=== PATIENT | female | born 1980 | race Hispanic/Latino ===

== ENCOUNTER 2019-02-27 15:17 | Observation (INO) | payer OTHER ==
[2019-02-27 15:53] LABS: Hemoglobin 6.3 g/dL (12.0-16.0); Mean Corpuscular HGB CONC 28.5 g/dL (32.0-36.0); Mean Corpuscular Hemoglobin 17.6 pg (27.0-31.0); Mean Corpuscular Volume 61.7 fL (78.0-98.0); Mean Platelet Volume 6.8 fL (7.4-10.4); Platelet Count 249 thou/uL (130-400); RBC Distribution Width 18.7 % (11.5-14.5); Red Blood Cell (RBC) Count 3.59 mill/uL (4.20-5.40); White Blood Cell (WBC) Count 3.6 thou/uL (4.8-10.8)
[2019-02-27 16:14] LABS: ALT (SGPT) 11 U/L (8-55); AST (SGOT) 13 U/L (5-34); Albumin 4.2 g/dL (3.5-5.0); Alkaline Phosphatase 52 U/L (40-150); Anion Gap 12 mmol/L (10-20); BUN (Urea Nitrogen) 9 mg/dL (7.0-18.7); Bilirubin, Total 0.4 mg/dL (0.2-1.2); Calc. Creatinine Clearance 0 mL/min (70-130); Calcium 9.2 mg/dL (7.8-10.44); Carbon Dioxide 26 mmol/L (22-29); Chloride 103 mmol/L (98-107); Estimated GFR-MDRD Greater than 90; Globulin 3.2 g/dL (2.4-3.5); Glucose 90 mg/dL (70-105); Potassium 3.5 mmol/L (3.5-5.1); Protein, Total 7.4 g/dL (6.0-8.3); Sodium 137 mmol/L (136-145)
[2019-02-27 16:20] LABS: Anisocytosis SLIGHT = 6-15 cells (100X) (0-5/hpf); Band 5 % (5-11); Eosinophils 1 % (0-10); Hypochromia MODERATE=16-30 cells (100X) (0-5/hpf); Large Platelets SLIGHT; Lymphocytes 46 % (21-51); MDiff Complete? YES; Microcytosis MODERATE=15-30 cells (100X) (0-5/hpf); Monocytes 5 % (0-10); Neutrophil 43 % (42-75); Ovalocytes SLIGHT = 2-5 cells (100X) (0-1/hpf); Platelet Morphology Comment Appears Adequate; Polychromasia MODERATE = 3-4 cells (100X) (0-2/hpf); Reflex for Review?? YES
[2019-02-28 00:45] VITALS: BMI 26.9
--- NOTE | 2019-02-28 03:23 | HP ---
PRIMARY CARE PROVIDER: None. CHIEF COMPLAINT: Low hemoglobin. HISTORY OF PRESENT ILLNESS: Ms. Guerrero is a pleasant 38-year-old lady, who was seen at [facility] on February 28, 2019. She is an inmate at a senior care. She reports that she delivered a baby approximately a year ago. In the senior care, she was having a routine physical exam when she was found to have low hemoglobin. She was therefore sent to the emergency room. She reports palpitations with exertions. She also reports that she has been tired all the time. She reports that she is currently having her menstrual cycle and reports that she usually has heavy menstrual bleeding and uses 2 pads at once and has to change them every 2 hours. She denies any chest pain. She denies any fevers or chills. REVIEW OF SYSTEMS: All other systems reviewed and found to be negative. PAST MEDICAL HISTORY: Anemia. PAST SURGICAL HISTORY: Appendectomy and section. SOCIAL HISTORY: The patient denies tobacco use, alcohol use, or recreational drug use. FAMILY HISTORY: Coronary artery bypass graft in her mother. ALLERGIES: NO KNOWN DRUG ALLERGIES. CURRENT MEDICATIONS: None. PHYSICAL EXAMINATION: GENERAL: On examination, Ms. Guerrero is awake and alert, not in acute distress. VITAL SIGNS: Blood pressure is 136/76, pulse 78, respiratory rate 16, and oxygen saturation 99% on room air. She is afebrile. EYES: She has no scleral icterus, she has conjunctival pallor. ENT: Moist mucosal membranes. No oropharyngeal erythema or exudates. NECK: Supple, nontender, trachea is midline. RESPIRATORY: Accessory muscles of breathing are not active. Chest wall movements are symmetric bilaterally. Lungs are clear to auscultation without wheeze, rhonchi, or crepitations. CARDIOVASCULAR: S1 and S2 are heard, regular. Peripheral pulses palpable. No carotid bruit. No pericardial rub. ABDOMEN: Soft, nontender, bowel sounds heard, no hepatomegaly, no splenomegaly. NEUROLOGIC: Cranial nerves 2 through 12 intact, deep tendon reflexes 2+. MUSCULOSKELETAL: Power is 5/5 in all 4 extremities. SKIN: No rashes or subcutaneous nodules. LYMPHATIC: No cervical lymphadenopathy. PSYCHIATRIC: Normal mood, normal affect, the patient is oriented to person, place, and time. LABORATORY DATA: Ms. Guerrero's labs and investigations were reviewed. She has normal comprehensive metabolic profile, leukopenia with 3600 white cells, microcytic anemia with hemoglobin 6.3, normal platelet count. ASSESSMENT AND PLAN: Ms. Guerrero is a pleasant 38-year-old lady, who was seen at [facility] on February 28, 2019. Her problem list includes: 1. Symptomatic anemia: Ms. Guerrero is presenting with symptomatic anemia, most likely secondary to acute blood loss from menstrual bleeding. She will be admitted to the hospital for further management, including packed blood cell transfusions. I will also check iron profile, vitamin B12, and folic acid levels. 2. Menorrhagia: She will be advised to follow up with gynecology service as outpatient for management of menorrhagia. Many thanks for allowing me to participate in Ms. Guerrero care. Please feel free to contact me with any questions or concerns. Level of risk: Moderate. Level of complexity: Moderate. The patient has received 2 units of packed RBCs. Her hemoglobin will be rechecked. If she is improved and asymptomatic, she may be discharged back to the senior care later today. Job ID: [id number]
[2019-02-28 04:32] LABS: #Basophils 0.1 thou/uL (0.0-0.2); #Eosinphils 0.2 thou/uL (0.0-0.7); #Lymphocytes 1.7 thou/uL (1.20-3.40); #Monocytes 0.5 thou/uL (0.11-0.59); %Eosinophils 2.8 % (0.0-10.0); %Lymphocytes 31.5 % (21.0-51.0); %Monocytes 9.1 % (0.0-10.0); %Neutrophils 55.7 % (42.0-75.0); Hemoglobin 9.4 g/dL (12.0-16.0); Mean Corpuscular HGB CONC 30.6 g/dL (32.0-36.0); Mean Corpuscular Hemoglobin 21.1 pg (27.0-31.0); Platelet Count 266 thou/uL (130-400); RBC Distribution Width 25.1 % (11.5-14.5); Red Blood Cell (RBC) Count 4.46 mill/uL (4.20-5.40); White Blood Cell (WBC) Count 5.4 thou/uL (4.8-10.8)
[2019-02-28 04:49] LABS: Iron 134 ug/dL (50-170); Iron Binding Capacity, Total 479 mcg/dL (265-497)
[2019-02-28 05:18] LABS: Folate (Folic Acid) 13.3 ng/mL (7.0-31.4)
[2019-02-28] MEDS ORDERED: Iron, Sodium Ferric Gluconate 250 MG in Sodium Chloride 0.9% 100 ML IVPB SCH (13:45)
[2019-02-28] MEDS ORDERED: Iron Sucrose Complex 200 MG in Sodium Chloride 0.9% 250 ML 250 ML IVPB SCH (13:45)
[2019-02-28 15:27] VITALS: BP 156/88; TEMP 98.6
--- NOTE | 2019-03-01 12:17 | DIS ---
DATE OF ADMISSION: 02/27/2019 DATE OF DISCHARGE: 02/28/2019 DIAGNOSES: Symptomatic anemia, most likely secondary to iron deficiency and a combination of iron deficiency and also heavy menstrual periods. Menorrhagia. HOSPITAL COURSE: The patient is a 38-year-old female who is an inmate, who presented to the hospital with complaints of some palpitations with exertion. She also has been complaining of being tired all the time. She also does have significant heavy menstruation. Sometimes, she will have a menstrual cycle for the whole month followed with heavy bleeding cycles monthly. She has never been on any control. She is 6, para 6. She was found to have a hemoglobin of 6.3. She was given 2 units, came up to 9.4. The patient's iron was 134, TIBC was 479; however, her ferritin was 2.55, vitamin B12 was 557. She was given IV iron and also started on oral iron and stool softener. The patient will follow up with [facility] as an outpatient. She may require some control as an outpatient. DISCHARGE PHYSICAL EXAMINATION: VITAL SIGNS: 98.9, 60, 18, 97% on room air, and 145/81. GENERAL: She is awake, alert, and oriented x3. Does not appear in distress. CV: S1, S2 present. No murmurs, rubs, or gallops. ABDOMEN: Soft, nontender. Bowel sounds present x2. MEDICATIONS: 1. Ferrous sulfate 325 p.o. b.i.d. 2. Colace 100 mg p.o. daily. 3. Also, I will add vitamin B12 one p.o. daily. Job ID: [id number]
== END 2019-02-28 16:55 | disposition home or self-care (01) ==
LOC: EEVIPCON 15:17 → ERS 15:17 → ONC 21:24
PROVIDERS: ADMIT Family Medicine; ATTEND Family Medicine
DX: D64.9 Anemia, unspecified (principal); N92.0 Excessive and frequent menstruation with regular cycle; Z90.89 Acquired absence of other organs
CPT/HCPCS: 36415; 36430; 80053; 82607; 82728; 82746; 83540; 83550; 85025; 85060; 86850; 86900; 86901; 96374; 99285; G0378; J2916; J3490; P9016

== ENCOUNTER 2019-03-26 15:17 | Emergency (ER) | payer OTHER ==
[2019-03-26 15:43] LABS: #Eosinphils 0.1 thou/uL (0.0-0.7); #Lymphocytes 1.6 thou/uL (1.20-3.40); #Monocytes 0.5 thou/uL (0.11-0.59); #Neutrophils 6.7 thou/uL (1.40-6.50); %Basophils 0.5 % (0.0-1.0); %Eosinophils 1.4 % (0.0-10.0); %Lymphocytes 17.5 % (21.0-51.0); %Neutrophils 74.7 % (42.0-75.0); Hemoglobin 8.6 g/dL (12.0-16.0); Mean Corpuscular HGB CONC 32.2 g/dL (32.0-36.0); Mean Corpuscular Hemoglobin 26.8 pg (27.0-31.0); Mean Corpuscular Volume 83.1 fL (78.0-98.0); Mean Platelet Volume 11.7 fL (7.4-10.4); Platelet Count 249 thou/uL (130-400); RBC Distribution Width 27.3 % (11.5-14.5); Red Blood Cell (RBC) Count 3.23 mill/uL (4.20-5.40)
[2019-03-26 16:02] LABS: Anisocytosis MODERATE=16-30 cells (100X) (0-5/hpf); Hypochromia SLIGHT = 6-15 cells (100X) (0-5/hpf); MDiff Complete? YES; Ovalocytes SLIGHT = 2-5 cells (100X) (0-1/hpf); Platelet Morphology Comment Appears Adequate; Polychromasia SLIGHT = 2-3 cells (100X) (0-2/hpf); Spherocytes SLIGHT = 1-5 cells (100X) (None Seen); Tear Drops SLIGHT = 2-5 cells (100X) (0-1/hpf)
[2019-03-26 16:06] LABS: ALT (SGPT) Less than 7 U/L (8-55); AST (SGOT) 15 U/L (5-34); Albumin 3.8 g/dL (3.5-5.0); Alkaline Phosphatase 46 U/L (40-150); Anion Gap 14 mmol/L (10-20); BUN (Urea Nitrogen) 6 mg/dL (7.0-18.7); Bilirubin, Total 0.4 mg/dL (0.2-1.2); Calc. Creatinine Clearance 0 mL/min (70-130); Calcium 9.1 mg/dL (7.8-10.44); Carbon Dioxide 24 mmol/L (22-29); Chloride 100 mmol/L (98-107); Estimated GFR-MDRD Greater than 90; Globulin 3.2 g/dL (2.4-3.5); Glucose 107 mg/dL (70-105); Potassium 3.7 mmol/L (3.5-5.1); Sodium 134 mmol/L (136-145)
[2019-03-26 16:21] LABS: Pregnancy Test - Urine (BHCG) Negative (Negative)
[2019-03-26 16:22] LABS: Clarity Opaque (Clear); Nitrite Negative (Negative); Pregu Control Background? CLEAR/WHITE (CLR/WHITE); Pregu Control Bar Appear? YES (CONTROL BAR); Protein, Urine (Dipstick) > or equal to 300 mg/dL (Neg-Trace); Specific Gravity 1.023 (1.002-1.036)
[2019-03-26 16:23] LABS: Bilirubin Unable to Interpret (Negative); Blood, Urine Large (Negative); Glucose, Urine (Dipstick) Unable to Interpret mg/dL (Negative); Leukocyte Unable to Interpret (Negative); Urobilinogen UNABLE TO INTERPRET mg/dL (Less than 2)
[2019-03-26 16:28] LABS: RBC/HPF Greater than 50 HPF (0-3)
[2019-03-26 16:29] LABS: Bacteria/HPF None Seen HPF (None Seen); Squamous Epithelial 0-3 HPF (0-3)
--- NOTE | 2019-03-26 21:21 | CT ---
CT OF THE ABDOMEN AND PELVIS WITH CONTRAST: 03/26/19 COMPARISON: None. HISTORY: Abdominal pain and constipation. No bowel movement in four days. TECHNIQUE: Multiple contiguous axial images were obtained in a CT of the abdomen and pelvis with contrast. Coron al reformats were performed. FINDINGS: There are hyperdensities in the dependent aspect of the gallbladder consistent with gallstones. The l iver, kidneys, adrenal glands, spleen, and pancreas are unremarkable. No free air, free fluid or stra nding changes are seen in the abdomen or pelvis. Fluid is seen within the cervix and endometrial canal as well as within the vagina. This likely repre sents ongoing menstruation. There is heterogeneous appearance of the uterine fundus which may represe nt sloughing of the normal endometrium versus a fibroid in this location. No free air, free fluid or stranding changes are seen in the abdomen or pelvis. The large and small bowel are unremarkable. No significant stool retention is seen in the colon. No a bdominal or pelvic lymphadenopathy are seen. The osseous structures, visualized inferior thorax, and abdominal wall soft tissues are unremarkable. IMPRESSION: 1. Cholelithiasis without acute intra-abdominal/pelvic abnormality. POS: [facility]
--- NOTE | 2019-03-26 21:27 | ULT ---
PELVIC ULTRASOUND WITH RUFF SCALE, COLOR FLOW AND SPECTRAL DOPPLER IMAGIN03/26/19 HISTORY: Left lower quadrant pain. Irregular periods. FINDINGS: The uterus measures 11.2 x 6.8 x 8.1 cm. The uterus is heterogeneous with masses consistent with fibr oids. The endometrium measures 2 mm in thickness. No endometrial fluid is seen. There is a 1.7 cm Nab othian cyst in the cervix. The right ovary measures 3.1 x 2.3 x 1.9 cm and the left ovary measures 3. 4 x 1.9 x 3.5 cm. No adnexal mass is seen. There is a small amount of free fluid adjacent to the left ovary. IMPRESSION: 1. Fibroid uterus. 2. Small amount of free fluid adjacent to the left ovary. POS: [facility]
--- NOTE | 2019-03-28 16:56 | EKG ---
Test Reason : Blood Pressure : / mmHG Vent. Rate : 117 BPM Atrial Rate : 117 BPM P-R Int : 130 ms QRS Dur : 076 ms QT Int : 322 ms P-R-T Axes : 014 032 -09 degrees QTc Int : 449 ms Sinus tachycardia Otherwise normal EKG Confirmed by ASHLEE VELEZ DO ([id number]), videotape editor KIRSTIN SOUSA ([id number]) on 03/28/2019 4:55:53 PM Referred By: Confirmed By:ASHLEE VELEZ DO
== END 2019-03-26 21:40 ==
LOC: ERS 15:17
DX: N83.202 Unspecified ovarian cyst, left side (principal); D25.9 Leiomyoma of uterus, unspecified; D64.9 Anemia, unspecified
CPT/HCPCS: 36415; 74177; 76856; 80053; 81003; 81015; 81025; 85025; 86850; 86900; 86901; 93005; 93976